=== PATIENT | male | born 1995 | race Two or more races ===

== ENCOUNTER 2016-07-11 04:31 | Emergency (ER) | payer SELFPAY ==
[2016-07-11 04:31] VITALS: BMI 36.2
[2016-07-11 05:48] VITALS: BP 147/87; PULSE 84; TEMP 98.5
--- NOTE | 2016-07-11 06:09 | EDPRACDOC ---
- General Information Chief Complaint: Flu-Like Symptoms Stated Complaint: SORE THROAT & WEAKNESS Time Seen by Provider: 07/11/16 05:59 Information Source: Patient Mode Of Arrival: Car Home Medications: Home Medications Albuterol Sulfate [Ventolin Hfa] 1 - 2 puff INH Q4H PRN #1 each 07/11/16 Ondansetron [Zofran Odt] 4 mg PO Q6H PRN #20 tab.rapdis 07/11/16 Oseltamivir Phosphate [Tamiflu] 75 mg PO BID #10 capsule 07/11/16 Allergies/Adverse Reactions: Allergies Allergy/AdvReac Type Severity Reaction Status Date / Time No Known Allergies Allergy Verified 05/20/16 17:25 - History of Present Illness 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 SISTER DIAGNOSED WITH INFLUENZA 3 DAYS AGO. Shortness of Breath: None Cough: Reports: Non-productive Rhinorrhea: Reports: Clear Fever Severity/Quality: Reports: no fever Ear Symptoms: Reports: None Associated Signs & Symptoms: Reports: Cough, Nausea, Vomiting, Myalgia Oral Intake: Normal Urinary Output: Normal ED Past Medical History - History Reviewed Yes Nurses notes reviewed and agree except as marked Travel Outside of [place] in the Last 3 Months?: No - Patient Medical History Respiratory History: Reports: Asthma Psychological History: Denies: Depression - Social Medical History Smoking Status: Never smoker Social History: Reports: Marijuana Use ETOH: None Substance Abuse: None Lives With: Family Lives In: Home EDM Review of Systems - Review of Systems ROS Negative Except as Marked: Yes All systems reviewed and were negative except as marked Constitutional: No Symptoms Reported. negative: Fever, Chills, Weakness, Fatigue, Loss of Appetite Eyes: No Symptoms Reported. negative: Redness, Blurred Vision, Double Vision, Discharge, Pain, Light Sensitive, Photophobia Ears: No Symptoms Reported. negative: Pain, Hearing Loss, Drainage, Ear Pulling Throat: Pain. negative: Swelling Nose: No Symptoms Reported. negative: Congestion, Bleeding, Discharge, Injection, Swelling, Deformity, Ecchymosis, Tender, Abrasion, Laceration Mouth: No Symptoms Reported. negative: Pain, Drooling Respiratory: Cough. negative: Barky Cough, Brassy Cough, Hemoptysis, Shortness of Breath, Wheezing Cardiovascular: No Symptoms Reported. negative: Chest Pain, Palpitations, Syncope, Edema, Orthopnea, PND, Skin Mottling, Cyanosis Gastrointestinal: Nausea, Vomiting. negative: Constipation, Diarrhea, Formula Intolerance, Melena, Pain Genitourinary: No Symptoms Reported. negative: Dysuria, Hematuria, Frequency, Discharge, Bleeding, Testicular Pain, Neurological: No Symptoms Reported. negative: Headache, Dizziness, Seizure, Numbness, Weakness, Speech Difficulty, Gait Difficulty Musculoskeletal: No Symptoms Reported. negative: Neck, Chestwall, Ribs, Back, Shoulder, Arm, Elbow, Forearm, Wrist, Hand, Pelvis, Hip, Femur, Knee, Leg, Ankle , Foot Integumentary: No Symptoms Reported. negative: Itching, Rash, Bruising, Wound Allergic/Immunologic: No Symptoms Reported. negative: Hives, Itching Hematologic: No Symptoms Reported. negative: Lymphadenopathy, Easy Bruising, Easy Bleeding Endocrine: No Symptoms Reported. negative: Weight Gain, Weight Loss Psychiatric: No Symptoms Reported. negative: Anxiety, Depression, Hallucinations, Insomnia, Suicidal - Physical Exam Constitutional: Alert (Awake), No apparent distress Oriented to: Time, Person, Place Last recorded Vital Signs: Last Vital Signs Temp 98.5 F 07/11/16 05:46 Pulse 84 07/11/16 05:46 Resp 20 07/11/16 05:46 BP 147/87 07/11/16 05:46 Pulse Ox 98 07/11/16 05:46 Oxygen Pulse Oxygen Saturation 98 O2 Device Room Air Oxygen Flow Rate Fraction of Inspired Oxygen ( FIO2) - HEENT Head: Normal ( normocephalic) Eye Exam: Normal (PERRL, EOMI, Sclera white) Oropharynx: Normal (Pharynx:Moist without exudate,Gums-no swelling) Tympanic Membrane: Normal ENT EAC: Normal TMJ: Normal Nose: No Symptoms Reported (septum midline) Neck: Normal (FROM, trachea at midline) - Respiratory/Cardiovascular Respiratory: Normal - CTA (BBS clear to auscultation without adventitious sounds ) Cardiovascular: Normal (RRR without murmur, gallop or rub) - GI Auscultation: Normal (NABS) Palpation: Normal (Soft,No rebound or guarding, non distended) Tenderness: Non tender Hameed's Sign: Negative - Musculoskeletal Back: Normal (Non-Tender) Extremities: Normal (Normal tone, Pulses 2+ No cyanosis or edema, FROM) - Integumentary Skin: Normal, Warm, Dry Lymphatics: Normal (no adenopathy) - Neurologic Memory Impaired: Normal Motor Function: Normal (Normal tone, Pulses 2+ No cyanosis or edema, FROM) Cranial Nerve: Normal (CN II-X11 intact sensation, strength 5/5) Cerebellar: Normal Mood Description: Normal Perception: Normal Decision Time to Discharge: 06:09 - Departure Yes I personally saw and evaluated the patient. Disposition: Home Condition: Stable Final Diagnosis: Influenza Instructions: Influenza (ED) Education/Counseling Given To: Patient Education/Counseling Given Regarding: Diagnosis, Treatment, Prognosis, Follow Up Referrals: None,No Provider [Primary Care Provider] - One Week John Huynh MD [Staff Physician] - One Week Prescriptions: Albuterol Sulfate [Ventolin Hfa] 1 - 2 puff INH Q4H PRN #1 each PRN Reason: SHORTNESS OF BREATH Ondansetron [Zofran Odt] 4 mg PO Q6H PRN #20 tab.rapdis PRN Reason: Nausea/Vomiting Oseltamivir Phosphate [Tamiflu] 75 mg PO BID #10 capsule
[2016-07-11] MEDS ORDERED: ONDANSETRON HCL 4 MG ODT TAB PO ONE (06:11)
== END 2016-07-11 06:40 | disposition home or self-care (01) ==
LOC: ED 04:31
DX: J11.1 Influenza due to unidentified influenza virus with other respiratory manifestations (principal)
CPT/HCPCS: 87804; 87880; 99282; J3490

== ENCOUNTER 2016-07-14 16:40 | Emergency (ER) | payer SELFPAY ==
[2016-07-14 16:57] VITALS: BP 170/94; PULSE 94; TEMP 98.2
[2016-07-14] MEDS ORDERED: ALBUTEROL 6.7 GM MDI INH ONE (16:57)
--- NOTE | 2016-07-14 16:59 | EDPRACDOC ---
- General Information Stated Complaint: COUGH Time Seen by Provider: 07/14/16 16:53 Information Source: Patient Home Medications: Home Medications Albuterol Sulfate [Ventolin Hfa] 1 - 2 puff INH Q4H PRN #1 each 07/11/16 Ondansetron [Zofran Odt] 4 mg PO Q6H PRN #20 tab.rapdis 07/11/16 Oseltamivir Phosphate [Tamiflu] 75 mg PO BID #10 capsule 07/11/16 Acetaminophen with Codeine [TYLENOL WITH CODEINE; [employer] with Codeine] 5 ml PO Q6H PRN #120 ml 07/14/16 Prednisone [Deltasone, Orasone] 20 mg PO DAILY #20 tab 07/14/16 Allergies/Adverse Reactions: Allergies Allergy/AdvReac Type Severity Reaction Status Date / Time No Known Allergies Allergy Verified 07/14/16 17:00 - History of Present Illness Onset: 3-4 days HPI: Pt c/o non productive cough, congestion, sore throat, sob, headache x 3-4 days. Pt states recently seen in ED and given tamiflu. Denies fever, earache, cp, abd pain, n/v, changes in bowel or bladder, rash. Hx asthma Current Symptoms: Reports: Cough, Headache, Nasal Symptoms, Sore Throat Shortness of Breath: Mild Cough: Reports: Non-productive Rhinorrhea: Reports: Clear Ear Symptoms: Reports: None Fever Severity/Quality: Reports: no fever Oral Intake: Normal Urinary Output: Normal Relevant History of: Asthma Associated Signs & Symptoms:: Reports: Cough, Headache, Nasal Symptoms, Sore Throat ED Past Medical History - History Reviewed Yes Nurses notes reviewed and agree except as marked - Patient Medical History Respiratory History: Reports: Asthma Psychological History: Denies: Depression - Social Medical History Smoking Status: Never smoker Social History: Reports: Marijuana Use ETOH: None EDM Review of Systems - Review of Systems Constitutional: No Symptoms Reported. negative: Fever, Chills, Weakness, Fatigue, Loss of Appetite Ears: No Symptoms Reported. negative: Pain, Hearing Loss, Drainage, Ear Pulling Throat: Pain Nose: Congestion Mouth: No Symptoms Reported. negative: Pain, Drooling Respiratory: Cough, Shortness of Breath Cardiovascular: No Symptoms Reported. negative: Chest Pain, Palpitations, Syncope, Edema, Orthopnea, PND, Skin Mottling, Cyanosis Gastrointestinal: No Symptoms Reported. negative: Pain, Constipation, Nausea, Vomiting, Diarrhea, Melena, Formula Intolerance Genitourinary: No Symptoms Reported. negative: Dysuria, Hematuria, Frequency, Discharge, Bleeding, Testicular Pain, Neurological: No Symptoms Reported. negative: Headache, Dizziness, Seizure, Numbness, Weakness, Speech Difficulty, Gait Difficulty Musculoskeletal: No Symptoms Reported. negative: Neck, Chestwall, Ribs, Back, Shoulder, Arm, Elbow, Forearm, Wrist, Hand, Pelvis, Hip, Femur, Knee, Leg, Ankle , Foot Integumentary: No Symptoms Reported. negative: Itching, Rash, Bruising, Wound Allergic/Immunologic: No Symptoms Reported. negative: Hives, Itching Hematologic: No Symptoms Reported. negative: Lymphadenopathy, Easy Bruising, Easy Bleeding Psychiatric: No Symptoms Reported. negative: Anxiety, Depression, Hallucinations, Insomnia, Suicidal - Physical Exam Constitutional: No apparent distress, Alert Oriented to: Time, Person, Place Last recorded Vital Signs: Last Vital Signs Temp 98.2 F 07/14/16 16:56 Pulse 94 07/14/16 16:56 Resp 20 07/14/16 16:56 BP 170/94 07/14/16 16:56 Pulse Ox 96 07/14/16 16:56 Oxygen Pulse Oxygen Saturation 96 O2 Device Room Air Oxygen Flow Rate Fraction of Inspired Oxygen ( FIO2) - HEENT Head: Normal ( normocephalic) Eye Exam: Normal (PERRL, EOMI, Sclera white) Oropharynx: Normal (Pharynx:Moist without exudate,Gums-no swelling) Tympanic Membrane: Normal ENT EAC: Normal Nose: Congestion Neck: Normal (FROM, trachea at midline) - Respiratory/Cardiovascular Respiratory: Normal - CTA (BBS clear to auscultation without adventitious sounds ) Cardiovascular: Normal (RRR without murmur, gallop or rub) - Integumentary Skin: Normal, Warm, Dry Lymphatics: Normal (no adenopathy) - Neurologic Memory Impaired: Normal Motor Function: Normal (Normal tone, Pulses 2+ No cyanosis or edema, FROM) Mood Description: Normal Perception: Normal - Differential Diagnosis Bronchitis, Pneumonia, URI, Viral - Diagnostic Imaging Chest Image interpreted by: Radiologist IMPRESSION: No acute infiltrate or pulmonary edema. Mild infrahilar bronchitic changes. Decision Time to Discharge: 17:07 - Departure Disposition: Home Condition: Good Final Diagnosis: Acute bronchitis, Acute upper respiratory infection Instructions: Acute Bronchitis (ED), Upper Respiratory Infection (ED) Education/Counseling Given To: Patient Education/Counseling Given Regarding: Diagnosis, Treatment, Follow Up Referrals: None,No Provider [Primary Care Provider] - One Week Fabián Clancy MD [Staff Physician] - One Week Prescriptions: Acetaminophen with Codeine [TYLENOL WITH CODEINE; [employer] with Codeine] 5 ml PO Q6H PRN #120 ml PRN Reason: Pain Prednisone [Deltasone, Orasone] 20 mg PO DAILY #20 tab Additional Instructions: Albuterol MDI 1-2 puffs every 4-6 hours as needed for shortness of breath.
[2016-07-14 17:00] VITALS: BMI 37.0
--- NOTE | 2016-07-14 17:03 | DIRPT ---
CLINICAL DATA: Cough, shortness of Breath, asthma EXAM: CHEST 2 VIEW COMPARISON: 05/22/2015 FINDINGS: Cardiomediastinal silhouette is stable. No acute infiltrate or pulmonary edema. Mild infrahilar bronchitic changes. Bony thorax is unremarkable. IMPRESSION: No acute infiltrate or pulmonary edema. Mild infrahilar bronchitic changes. Electronically Signed By: Marco Baldwin M.D. On: 07/14/2016 17:01
== END 2016-07-14 17:15 | disposition home or self-care (01) ==
LOC: EDMC 16:40
DX: J06.9 Acute upper respiratory infection, unspecified (principal); J20.9 Acute bronchitis, unspecified
CPT/HCPCS: 71020; 94640; 99282; J3490

== ENCOUNTER 2016-07-19 04:54 | Emergency (ER) | payer SELFPAY ==
--- NOTE | 2016-07-19 05:07 | EDPRACDOC ---
- General Information Stated Complaint: COUGH/SPITTING UP BLOOD Time Seen by Provider: 07/19/16 05:04 Home Medications: Home Medications Albuterol Sulfate [Ventolin Hfa] 1 - 2 puff INH Q4H PRN #1 each 07/11/16 Ondansetron [Zofran Odt] 4 mg PO Q6H PRN #20 tab.rapdis 07/11/16 Oseltamivir Phosphate [Tamiflu] 75 mg PO BID #10 capsule 07/11/16 Acetaminophen with Codeine [TYLENOL WITH CODEINE; [employer] with Codeine] 5 ml PO Q6H PRN #120 ml 07/14/16 Prednisone [Deltasone, Orasone] 20 mg PO DAILY #20 tab 07/14/16 Azithromycin [Zithromax] 0 mg PO DAILY #6 tablet 07/19/16 Guaifenesin-Codeine [Robitussin AC] 10 ml PO Q6-8H 5 Days 07/19/16 Allergies/Adverse Reactions: Allergies Allergy/AdvReac Type Severity Reaction Status Date / Time No Known Allergies Allergy Verified 07/14/16 17:00 - History of Present Illness HPI: COUGH WITH BROWNISH SPUTUM; SEEN HERE A COUPLE OF TIMES WITHIN LAST COUPLE OF WEEKS. CXR NEGATIVE. STARTED ON TAMIFLU; NON SMOKER Symptoms: Reports: Cough Relevant History Of: Reports: None Shortness of Breath: None Cough Frequency: Intermittent Cough Description: Reports: Productive Rhinorrhea: Reports: Brown Ear Symptoms: Reports: None Associated Signs and Symptoms: Reports: Cough ED Past Medical History - History Reviewed Yes Nurses notes reviewed and agree except as marked - Patient Medical History Respiratory History: Reports: Asthma Psychological History: Denies: Depression - Social Medical History Smoking Status: Never smoker Social History: Reports: Marijuana Use EDM Review of Systems - Review of Systems ROS Negative Except as Marked: Yes All systems reviewed and were negative except as marked - Physical Exam Constitutional: Alert (Awake), No apparent distress Oriented to: Time, Person, Place Last recorded Vital Signs: Oxygen Pulse Oxygen Saturation O2 Device Oxygen Flow Rate Fraction of Inspired Oxygen ( FIO2) - HEENT Head: Normal ( normocephalic) Eye Exam: Normal (PERRL, EOMI, Sclera white) ENT EAC: Normal TMJ: Normal Nose: No Symptoms Reported (septum midline) Neck: Normal (FROM, trachea at midline) - Respiratory/Cardiovascular Respiratory: Normal - CTA (BBS clear to auscultation without adventitious sounds ) Cardiovascular: Normal (RRR without murmur, gallop or rub) - GI Auscultation: Normal (NABS) Palpation: Normal (Soft,No rebound or guarding, non distended) Tenderness: Non tender Hameed's Sign: Negative - Musculoskeletal Back: Normal (Non-Tender) Extremities: Normal (Normal tone, Pulses 2+ No cyanosis or edema, FROM) - Integumentary Skin: Normal, Warm, Dry Lymphatics: Normal (no adenopathy) - Neurologic Memory Impaired: Normal Motor Function: Normal (Normal tone, Pulses 2+ No cyanosis or edema, FROM) Cranial Nerve: Normal (CN II-X11 intact sensation, strength 5/5) Cerebellar: Normal Mood Description: Normal Perception: Normal Decision Time to Discharge: 05:25 - Departure Yes I personally saw and evaluated the patient. Disposition: Home Condition: Good Final Diagnosis: Acute bronchitis Instructions: Acute Bronchitis (ED) Education/Counseling Given To: Patient Education/Counseling Given Regarding: Diagnosis, Treatment Referrals: None,No Provider [Primary Care Provider] - One Week Kevon Valerio MD [Staff Physician] - One Week Prescriptions: Azithromycin [Zithromax] 0 mg PO DAILY #6 tablet Guaifenesin-Codeine [Robitussin AC] 10 ml PO Q6-8H 5 Days
[2016-07-19 05:09] VITALS: TEMP 98.4; BMI 30.1
[2016-07-19 05:29] VITALS: BP 150/84; PULSE 81
== END 2016-07-19 05:28 | disposition home or self-care (01) ==
LOC: ED 04:54
DX: J20.9 Acute bronchitis, unspecified (principal)
CPT/HCPCS: 99282